=== PATIENT | female | born 1950 | race Caucasian/White ===

== ENCOUNTER 2023-04-21 10:35 | Emergency (ER) | payer MEDICARE, BC ==
[2023-04-21] MEDS: Etomidate 2 MG/ML 10 ML SDV IVPUSH ONE (11:26)
[2023-04-21] MEDS: Midazolam 1 MG/ML 2 ML SDV IVPUSH ONE (11:27)
[2023-04-21] MEDS: Sodium Chloride 0.9% 1,000 ML IV ONE (13:48)
== END 2023-04-21 12:00 | disposition home or self-care (01) ==
LOC: KA.ED 10:35
DX: S73.005A Unspecified dislocation of left hip, initial encounter (principal); W01.0XXA Fall on same level from slipping, tripping and stumbling without subsequent striking against object, initial encounter
CPT/HCPCS: 27266; 99283; 99283-25; J2250; J3490